=== PATIENT | female | born 1950 | race Caucasian/White ===

== ENCOUNTER 2017-04-27 10:48 | Day surgery (SDC) | payer MEDICARE, MEDICAID ==
[2017-04-27] VITALS (11 sets, daily range): BP systolic 128–163; BP diastolic 68–82; PULSE 62–668; TEMP 97.9
[~2017-04-27] VITALS: Ht 165.1 cm; Wt 117.9 kg
[~2017-04-27 10:48] MED LIST: EFFEXOR-XR150 MG PO; EXCEDRIN 250 MG1 TAB PO; PHENERGAN 25 TA25 MG PO; PREMARIN 0.60.625 MG PO; TYLENOL PM; XANAX0.25 MG PO
[2017-04-27 11:52] LABS: MEAN CELL VOLUME 96 fl (80.0-100.0); MEAN CORPUSCULAR HGB CONC 32 g/dl (33.0-37.0); MEAN PLATELET VOLUME 10.6 fl (7.4-10.4); PLATELET COUNT 217 K/mm3 (130-400); RED BLOOD COUNT 3.81 M/mm3 (4.10-5.30); REDCELL DISTRIBUTION WIDTH-CV 14.5 % (11.5-14.5); WHITE BLOOD COUNT 7.1 K/mm3 (4.8-10.8)
[2017-04-27 11:53] LABS: HEMATOCRIT 36.5 % (37.0-47.0); HEMOGLOBIN 11.7 g/dl (12.5-16.0); MEAN CORPUSCULAR HEMOGLOBIN 31 pg (27.0-31.0)
[2017-04-27 11:56] LABS: PROTHROMBIN TIME 11.3 SECONDS (9.7-12.8)
[2017-04-27 11:57] LABS: CALCIUM 8.9 mg/dL (8.4-10.2); CREATININE, serum 0.93 mg/dL (0.52-1.25); POTASSIUM 3.9 mmol/L (3.4-5.0)
[2017-04-27] MEDS ORDERED: AMBIEN 10MG10 MG PO (12:13)
[2017-04-27] MEDS ORDERED: KLONOPIN 0.5MG0.5 MG PO (12:13)
[2017-04-27] MEDS ORDERED: ZYRTEC 10MG10 MG PO (12:14)
[2017-04-27] MEDS ORDERED: PREMARIN 0.60.625 M1 PO (12:15)
[2017-04-27] MEDS ORDERED: PROTONIX 40MG T40 MG PO (12:16)
[2017-04-27] MEDS ORDERED: EFFEXOR-XR150 MG PO (12:18)
[2017-04-27] MEDS ORDERED: VISTARIL 2525 MG/CAP PO (12:18)
[2017-04-27] MEDS ORDERED: SEROQUEL300 MG PO (12:20)
[2017-04-27] MEDS ORDERED: NATURAL E400 IU PO (12:20)
[2017-04-27] MEDS ORDERED: MOBIC 7.5MG7.5 MG PO (12:21)
[2017-04-27] MEDS ORDERED: RIOMET500 MG/5 M PO (12:21)
[2017-04-27] MEDS ORDERED: EPA FISH OIL1 SGL PO (12:22)
[2017-04-27] MEDS ORDERED: LIPITOR 80MG80 MG PO (12:22)
[2017-04-27] MEDS ORDERED: CITRUS CALCIUM1 TA1 PO (12:23)
[2017-04-27] MEDS ORDERED: NEURONTIN300 MG/CAP PO (12:23)
[2017-04-27] MEDS ORDERED: SEROQUEL 2525 MG/TAB PO (12:23)
[2017-04-27] MEDS ORDERED: MELATONIN5 M1 PO (12:24)
[2017-04-27] MEDS ORDERED: ASPIRIN 81M81 MG/TA2 PO (15:30)
== END 2017-04-27 18:47 | disposition home or self-care (01) ==
LOC: COL.CAR 10:48
PROVIDERS: Internal Medicine Cardiovascular Disease
DX: I25.10 Atherosclerotic heart disease of native coronary artery without angina pectoris (principal); I27.2 Other secondary pulmonary hypertension
CPT/HCPCS: A4315; C1725; C1760; J2250; J3010; Q9967